=== PATIENT | male | born 1945 | race Caucasian/White ===

== ENCOUNTER 2019-01-11 14:05 | Emergency (ER) | payer OTHER ==
--- NOTE | 2019-01-11 15:27 | ER Document Report ---
ED Medical Screen (RME) - General Chief Complaint: Dizziness Stated Complaint: LIGHTHEADED, WEAKNESS Time Seen by Provider: 01/11/19 15:10 Notes: Patient is a 73-year-old male presents to the emergency department for generalized weakness and dizziness for the last 2 days. Patient states he presented to his primary care provider office for evaluation. States they did an EKG and told him that his heart was "too slow. EKG that is with patient records shows his heart rate was at 56. Patient's denying any chest pain, shortness of breath. States he was doing a lot of work outside the last couple of days. States he just feels "extra tired" states again I "do not feel like myself." Admits to gENERAL: Alert, interacts well. No acute distress. HEAD: Normocephalic, atraumatic. LUNGS: Clear to auscultation bilaterally, no wheezes, rales, or rhonchi. No respiratory distress. [place] CVA scale 0 I have greeted and performed a rapid initial assessment of this patient. A comprehensive ED assessment and evaluation of the patient, analysis of test results and completion of the medical decision making process will be conducted by additional ED providers. I have specifically instructed the patient or family members with the patient to immediately return to any nursing staff should anything change in the patient's condition or with their chief complaint. This medical record was dictated with voice recognizing software. There may be grammatical, syntax errors that are unintended. TRAVEL OUTSIDE OF THE [place] IN LAST 30 DAYS: No - Related Data Allergies/Adverse Reactions: No Known Allergies Allergy (Verified 01/11/19 14:15) Past Medical History - Social History Frequency of alcohol use: Occasional Drug Abuse: None Renal/ Medical History: Denies: Hx Peritoneal Dialysis Physical Exam - Vital signs Vitals: Temp Pulse Resp BP Pulse Ox 98.4 F 75 16 168/69 H 95 01/11/19 14:01/11/19 14:01/11/19 14:01/11/19 14:01/11/19 14:28 Course - Vital Signs Vital signs: Temp Pulse Resp BP Pulse Ox 98.4 F 75 16 168/69 H 95 01/11/19 14:28 01/11/19 14:28 01/11/19 14:28 01/11/19 14:28 01/11/19 14:28
--- NOTE | 2019-01-11 16:02 | RADIOLOGY REPORT (SQ) ---
EXAM DESCRIPTION: CT HEAD WITHOUT COMPLETED DATE/TIME: 01/11/2019 3:51 pm REASON FOR STUDY: weakness COMPARISON: None. TECHNIQUE: Axial images acquired through the brain without intravenous contrast. Images reviewed wi th bone, brain and subdural windows. Additional sagittal and coronal reconstructions were generated. Images stored on PACS. All CT scanners at this facility use dose modulation, iterative reconstruction, and/or weight based d osing when appropriate to reduce radiation dose to as low as reasonably achievable (ALARA). [facility]: Dose Right [facility]: CareDose [facility]: Dose Right [facility]: Teradose 4D [facility]: [employer] RADIATION DOSE: CT Rad equipment meets quality standard of care and radiation dose reduction techniq ues were employed. CTDIvol: 53.2 mGy. DLP: 1017 mGy-cm. mGy. LIMITATIONS: None. FINDINGS: VENTRICLES: Normal size and contour. CEREBRUM: No masses. No hemorrhage. No midline shift. No evidence for acute infarction. Normal gra y/white matter differentiation. No areas of low density in the white matter. CEREBELLUM: No masses. No hemorrhage. No alteration of density. No evidence for acute infarction. EXTRAAXIAL SPACES: No fluid collections. No masses. ORBITS AND GLOBE: No intra- or extraconal masses. Normal contour of globe without masses. CALVARIUM: No fracture. PARANASAL SINUSES: No fluid or mucosal thickening. SOFT TISSUES: No mass or hematoma. OTHER: No other significant finding. IMPRESSION: No acute intracranial pathology. EVIDENCE OF ACUTE STROKE: NO. COMMENT: Quality ID # [id number]: Final reports with documentation of one or more dose reduction techniques (e.g., Automated exposure control, adjustment of the mA and/or kV according to patient size, use of iterative reconstruction technique) TECHNICAL DOCUMENTATION: JOB ID: [id number] [employer]- All Rights Reserved Reading location - IP/workstation name: [email or web address]
--- NOTE | 2019-01-11 16:10 | RADIOLOGY REPORT (SQ) ---
EXAM DESCRIPTION: CHEST SINGLE VIEW COMPLETED DATE/TIME: 01/11/2019 3:49 pm REASON FOR STUDY: weakness COMPARISON: None. NUMBER OF VIEWS: One view. TECHNIQUE: Single frontal radiographic view of the chest acquired. LIMITATIONS: None. FINDINGS: LUNGS AND PLEURA: No consolidation, masses or pneumothorax. No significant pleural effusio n. MEDIASTINUM AND HILAR STRUCTURES: No masses. Contour normal. HEART AND VASCULAR STRUCTURES: Heart normal in size. Normal vasculature. Prior CABG. BONES: No acute findings. HARDWARE: CABG hardware. OTHER: No other significant finding. IMPRESSION: NO SIGNIFICANT RADIOGRAPHIC FINDING IN THE CHEST. PRIOR CABG. TECHNICAL DOCUMENTATION: JOB ID: [id number] [place]-72 2010 [employer]- All Rights Reserved Reading location - IP/workstation name: [email or web address]
[2019-01-11 16:21] LABS: ABSOLUTE BASOPHILS # (AUTO) 0.1 10^3/uL (0.0-0.2); ABSOLUTE EOSINOPHILS # (AUTO) 0.2 10^3/uL (0.0-0.6); ABSOLUTE LYMPHOCYTES (AUTO) 2.1 10^3/uL (0.5-4.7); ABSOLUTE MONOCYTES (AUTO) 0.6 10^3/uL (0.1-1.4); ABSOLUTE NEUT (AUTO) 5.8 10^3/uL (1.7-8.2); BASOPHILS % (AUTO) 0.9 % (0-2); EOSINOPHILS % (AUTO) 1.8 % (0-6); HEMATOCRIT 46.3 % (37.9-51.0); HEMOGLOBIN 15.9 g/dL (13.5-17.0); MEAN CORPUSCULAR HEMOGLOBIN 31.8 pg (27.0-33.4); MEAN CORPUSCULAR HGB CONC 34.2 g/dL (32.0-36.0); MEAN CORPUSCULAR VOLUME 93 fl (80-97); MONOCYTES % (AUTO) 6.7 % (3-13); PLATELET COUNT 211 10^3/uL (150-450); RED BLOOD COUNT 4.99 10^6/uL (4.35-5.55); RED CELL DISTRIBUTION WIDTH 12.7 % (11.5-14.0); SEGMENTED NEUTROPHILS % (AUTO) 66.6 % (42-78); TOTAL CELLS COUNTED % (AUTO) 100 %; WHITE BLOOD COUNT 8.8 10^3/uL (4.0-10.5)
[2019-01-11 16:24] LABS: APPEARANCE,URINE CLEAR; BILIRUBIN,URINE NEGATIVE (NEGATIVE); COLOR,URINE YELLOW; GLUCOSE, URINE NEGATIVE (NEGATIVE); KETONES,URINE NEGATIVE (NEGATIVE); LEUKOCYTE ESTERASE,URINE NEGATIVE (NEGATIVE); NITRITE,URINE NEGATIVE (NEGATIVE); PROTEIN,URINE NEGATIVE (NEGATIVE); URINE SPECIFIC GRAVITY 1.008; UROBILINOGEN,URINE NEGATIVE mg/dL (<2.0)
[2019-01-11 16:41] LABS: ALANINE AMINOTRANSFERASE 47 U/L (21-72); ALBUMIN 4.8 g/dL (3.5-5.0); ALKALINE PHOSPHATASE 134 U/L (38-126); ANION GAP 9 (5-19); ASPARTATE AMINO TRANSFERASE 51 U/L (17-59); BILIRUBIN,DIRECT 0.3 mg/dL (0.0-0.4); BILIRUBIN,TOTAL 0.5 mg/dL (0.2-1.3); BLOOD UREA NITROGEN 12 mg/dL (7-20); CALCIUM 10.3 mg/dL (8.4-10.2); CARBON DIOXIDE 27 mmol/L (22-30); CHLORIDE 105 mmol/L (98-107); CREATINE KINASE 113 U/L (55-170); GLUCOSE 104 mg/dL (75-110); POTASSIUM 5.6 mmol/L (3.6-5.0); SODIUM 140.9 mmol/L (137-145)
[2019-01-11 16:54] LABS: CREATINE KINASE MB 0.94 ng/mL (<4.55)
[2019-01-11 17:04] LABS: TROPONIN I 0.038 ng/mL
[2019-01-11] MEDS ORDERED: NORMAL SALINE 1000 ML 1,000 ML IV ONE (18:57)
--- NOTE | 2019-01-11 19:18 | ER Document Report ---
ED General - General Chief Complaint: Dizziness Stated Complaint: LIGHTHEADED, WEAKNESS Time Seen by Provider: 01/11/19 15:10 Primary Care Provider: PROSPER,FLAQUITA [Primary Care Provider] - Follow up as needed TRAVEL OUTSIDE OF THE [place] IN LAST 30 DAYS: No - HPI Notes: Patient is a 73-year-old male that presents to the emergency department for chief complaint of bradycardia. Patient states that he was being evaluated at the [facility] today for episodes of dizziness as well as left neck pain when they informed him he needed to go to the ER because his heart rate was 56. Patient states that yesterday while lifting a piece of drywall on an angle he had a sharp pain in the left side of his neck that felt like a spasm. It lasted for about an hour and then resolved with rest. He states that pain has not returned back. He also reports a few episodes of dizziness over the last 2 days as well. He states when he lies flat on his back he feels like the room is spinning. This lasts for 2 to 3 seconds at a time and then completely resolves. He states he has felt a fullness in his left ear and had an earwax impaction this week that he resolved with Debrox. Patient did have one episode of dizziness while lying flat for the CT scanner but states he has otherwise been asymptomatic. He denies any palpitations, chest pain, shortness of breath, diaphoresis, nausea/vomiting. He had a normal stress test 3 years ago. He has been compliant with all medications including his aspirin and Plavix. Past Medical History: Hypertension, CAD, hyperlipidemia Past Surgical History: CABG x3, coronary stent x3, mammary artery bypass Social History: Daily tobacco use. Denies drugs and alcohol. Family History: Reviewed and noncontributory for presenting illness Allergies: Reviewed, see documented allergy list. REVIEW OF SYSTEMS: CONSTITUTIONAL : No fever No chills No diaphoresis No recent illness EENT: No vision changes No congestion No sore throat CARDIOVASCULAR: No chest pain No palpitations RESPIRATORY: No shortness of breath No cough No difficulty breathing GASTROINTESTINAL: No abdominal pain No nausea No vomiting No diarrhea GENITOURINARY: No dysuria No hematuria No difficulty urinating MUSCULOSKELETAL: No back pain No leg pain No arm pain Left-sided neck pain SKIN: No rashes No lesions LYMPHATIC: No swollen, enlarged glands. NEUROLOGICAL: No lightheadedness No headache No weakness No paresthesias dizziness PSYCHIATRIC: No anxiety No depression PHYSICAL EXAMINATION: Vital signs reviewed, nursing noted reviewed. GENERAL: Well-appearing, well-nourished and in no acute distress. HEAD: Atraumatic, normocephalic. EYES: No nystagmus eyes appear normal, extraocular movements intact, sclera anicteric, conjunctiva are normal. ENT: nares patent, oropharynx clear without exudates. Moist mucous membranes. NECK: No carotid bruit, no midline spinal tenderness or paraspinal tenderness, normal range of motion, supple without lymphadenopathy LUNGS: Breath sounds clear to auscultation bilaterally and equal. No wheezes rales or rhonchi. HEART: Regular rate and rhythm without murmurs, +2/4 bilateral radial and DP pulses ABDOMEN: Soft, nontender, normoactive bowel sounds. No rebound, guarding, or ri gidity. No masses appreciated. EXTREMITIES: Nontender, good range of motion, no pitting or edema. NEUROLOGICAL: No focal neurological deficits. Moves all extremities spontaneously Motor and sensory grossly intact on exam. PSYCH: Normal mood, normal affect. SKIN: Warm, Dry, normal turgor, no rashes or lesions noted on exposed skin - Related Data Allergies/Adverse Reactions: No Known Allergies Allergy (Verified 01/11/19 14:15) Past Medical History - Social History Smoking Status: Current Some Day Smoker Frequency of alcohol use: Occasional Drug Abuse: None Family History: Reviewed & Not Pertinent Patient has suicidal ideation: No Patient has homicidal ideation: No Renal/ Medical History: Denies: Hx Peritoneal Dialysis Physical Exam - Vital signs Vitals: Temp Pulse Resp BP Pulse Ox 98.4 F 75 16 168/69 H 95 01/11/19 14:28 01/11/19 14:28 01/11/19 14:28 01/11/19 14:28 01/11/19 14:28 Course - Re-evaluation Re-evalutation: 01/11/19 19:18 Vitals reviewed. Nursing notes reviewed. Patient is not bradycardic in the emergency room. He does have PVCs with no other significant change from the EKGs he had performed at the [facility]. Patient's heart rate was 56 at the [facility] and was 55 and 2015. Patient reports being on blood pressure medicines that slow his heart rate down and I am not clinically concerned about his bradycardia at this point since his blood pressure is stable and he is mentating appropriately. His dizzy spells last for a few seconds at a time and are positional consistent with probable BPPV from his left ear discomfort. Patient's lab work does show hyperkalemia at 5.6. His troponin is also indeterminate at 0.038. Delta troponin will be drawn. Patient is currently refusing to be placed on phototypesetting equipment monitor. He is also refusing admission to the hospital for his hyperkalemia indeterminate troponin. I did recommend IV fluids to help with the hyperkalemia which she has also declined. Patient was given oral hydration in the ED. He is agreeing to wait on the second troponin. Patient had CT scan performed for his complaint of dizziness which shows no acute intracranial pathology. I am currently not suspicious for stroke as a cause of his dizziness since his symptoms resolved after a few seconds and are positional. Laboratory 01/11/19 01/11/19 01/11/19 16:09 16:09 16:09 WBC 8.8 RBC 4.99 Hgb 15.9 Hct 46.3 MCV 93 MCH 31.8 MCHC 34.2 RDW 12.7 Plt Count 211 Seg Neutrophils % 66.6 Lymphocytes % 24.0 Monocytes % 6.7 Eosinophils % 1.8 Basophils % 0.9 Absolute Neutrophils 5.8 Absolute Lymphocytes 2.1 Absolute Monocytes 0.6 Absolute Eosinophils 0.2 Absolute Basophils 0.1 Sodium 140.9 Potassium 5.6 H Chloride 105 Carbon Dioxide 27 Anion Gap 9 BUN 12 Creatinine 0.94 Est GFR ( Amer) > 60 Est GFR (Non-Af Amer) > 60 Glucose 104 Calcium 10.3 H Total Bilirubin 0.5 Direct Bilirubin 0.3 Neonat Total Bilirubin Not Reportable Neonat Direct Bilirubin Not Reportable Neonat Indirect Bili Not Reportable AST 51 ALT 47 Alkaline Phosphatase 134 H Creatine Kinase 113 CK-MB (CK-2) 0.94 Troponin I 0.038 Total Protein 8.0 Albumin 4.8 Urine Color Urine Appearance Urine pH Ur Specific [place] Urine Protein Urine Glucose (UA) Urine Ketones Urine Blood Urine Nitrite Urine Bilirubin Urine Urobilinogen Ur Leukocyte Esterase Urine WBC (Auto) Urine Mucus (Auto) Urine Ascorbic Acid 01/11/19 16:09 WBC RBC Hgb Hct MCV MCH MCHC RDW Plt Count Seg Neutrophils % Lymphocytes % Monocytes % Eosinophils % Basophils % Absolute Neutrophils Absolute Lymphocytes Absolute Monocytes Absolute Eosinophils Absolute Basophils Sodium Potassium Chloride Carbon Dioxide Anion Gap BUN Creatinine Est GFR ( Amer) Est GFR (Non-Af Amer) Glucose Calcium Total Bilirubin Direct Bilirubin Neonat Total Bilirubin Neonat Direct Bilirubin Neonat Indirect Bili AST ALT Alkaline Phosphatase Creatine Kinase CK-MB (CK-2) Troponin I Total Protein Albumin Urine Color YELLOW Urine Appearance CLEAR Urine pH 5.0 Ur Specific [place] 1.008 Urine Protein NEGATIVE Urine Glucose (UA) NEGATIVE Urine Ketones NEGATIVE Urine Blood NEGATIVE Urine Nitrite NEGATIVE Urine Bilirubin NEGATIVE Urine Urobilinogen NEGATIVE Ur Leukocyte Esterase NEGATIVE Urine WBC (Auto) 1 Urine Mucus (Auto) RARE Urine Ascorbic Acid NEGATIVE Chest X-Ray 01/11/19 15:23 IMPRESSION: NO SIGNIFICANT RADIOGRAPHIC FINDING IN THE CHEST. PRIOR CABG. Head CT 01/11/19 15:27 IMPRESSION: No acute intracranial pathology. EVIDENCE OF ACUTE STROKE: NO. 01/11/19 20:10 Patient second troponin is lower than the first. He was advised admission to the hospital for telemetry monitoring given his intermittent bradycardia, ectopy and hyperkalemia however patient has declined admission to the hospital. He states he will follow with the [facility] tomorrow for repeat potassium and to get another cardiac stress test scheduled since it has been 3 years. Patient has not had any chest pain or shortness of breath to suggest acute ACS. Patient un derstands his medical conditions and has capacity to make medical decisions. He will be discharged home at this time. - Vital Signs Vital signs: Temp Pulse Resp BP Pulse Ox 98.4 F 94 16 181/61 H 98 01/11/19 14:28 01/11/19 19:57 01/11/19 19:57 01/11/19 19:57 01/11/19 19:57 - Laboratory Result Diagrams: 01/11/19 16:09 01/11/19 16:09 Laboratory results interpreted by me: 01/11/19 16:09 Potassium 5.6 H Calcium 10.3 H Alkaline Phosphatase 134 H - EKG Interpretation by Me Additional EKG results interpreted by me: 01/11/19 19:16 Interpreted by myself 07/29/2002: Normal sinus rhythm, rate 71, frequent PVCs, no STEMI, no significant change from 1322 on 01/11/2019 performed at the [facility] or 07/03/2015 at the [facility] Discharge - Discharge Clinical Impression: Hyperkalemia, Bradycardia BPPV (benign paroxysmal positional vertigo) Qualifiers: Laterality: left Qualified Code(s): H81.12 - Benign paroxysmal vertigo, left ear Condition: Stable Disposition: HOME, SELF-CARE Instructions: Vertigo ([facility]) Additional Instructions: Please return to the emergency department if you have any worsening, or concern of your symptoms. Please return to the emergency department if you develop chest pain, difficulty breathing, severe abdominal pain, or ongoing vomiting. Please follow-up with your primary care physician in 1-2 days and any other recommended physicians. If prescribed, take all medications as directed. If you have any questions or concerns do not hesitate to return the emergency department for evaluation. You need to have your potassium level rechecked by your primary care doctor in the next 1 to 2 days. Increase the amount of water you are drinking daily which can lower your potassium levels. Talk to your primary care doctor about getting a repeat cardiac stress test in the next week Referrals: [facility] [Primary [facility] Provider] - Follow up tomorrow
[2019-01-11 19:58] VITALS: BP 181/61
--- NOTE | 2019-01-11 22:59 | EKG REPORT ---
SEVERITY:- ABNORMAL ECG - SINUS RHYTHM WITH APC VENTRICULAR BIGEMINY CONSIDER ANTEROSEPTAL INFARCT NONSPECIFIC T ABNORMALITIES, INFERIOR LEADS : Confirmed by: Sung Kilpatrick 11-Jan-2019 22:57:51
== END 2019-01-11 20:16 | disposition home or self-care (01) ==
LOC: ER 14:05
DX: H81.12 Benign paroxysmal vertigo, left ear (principal); E87.5 Hyperkalemia; R00.1 Bradycardia, unspecified
CPT/HCPCS: 36415; 70450; 71045; 80053; 81001; 82550; 82553; 84484; 85025; 93005; 93010; 99285

== ENCOUNTER 2019-07-04 12:04 | Emergency (ER) | payer OTHER, MEDICARE ==
[2019-07-04 12:25] LABS: ABSOLUTE EOSINOPHILS # (AUTO) 0.3 10^3/uL (0.0-0.6); ABSOLUTE LYMPHOCYTES (AUTO) 2.5 10^3/uL (0.5-4.7); ABSOLUTE NEUT (AUTO) 4.9 10^3/uL (1.7-8.2); BASOPHILS % (AUTO) 0.5 % (0-2); EOSINOPHILS % (AUTO) 3.2 % (0-6); HEMOGLOBIN 16.7 g/dL (13.5-17.0); LYMPHOCYTES % (AUTO) 28.8 % (13-45); MEAN CORPUSCULAR HEMOGLOBIN 32.3 pg (27.0-33.4); MEAN CORPUSCULAR HGB CONC 34.8 g/dL (32.0-36.0); MEAN CORPUSCULAR VOLUME 93 fl (80-97); MONOCYTES % (AUTO) 11.8 % (3-13); PLATELET COUNT 210 10^3/uL (150-450); RED BLOOD COUNT 5.16 10^6/uL (4.35-5.55); SEGMENTED NEUTROPHILS % (AUTO) 55.7 % (42-78); TOTAL CELLS COUNTED % (AUTO) 100 %; WHITE BLOOD COUNT 8.8 10^3/uL (4.0-10.5)
[2019-07-04 12:57] LABS: CREATINE KINASE 63 U/L (55-170)
[2019-07-04 13:10] LABS: PROTHROMBIN TIME 12.1 SEC (11.4-15.4)
--- NOTE | 2019-07-04 13:22 | RADIOLOGY REPORT (SQ) ---
EXAM DESCRIPTION: CT HEAD WITHOUT COMPLETED DATE/TIME: 07/04/2019 1:07 pm REASON FOR STUDY: acute altered mental status COMPARISON: 01/11/2019. TECHNIQUE: Axial images acquired through the brain without intravenous contrast. Images reviewed wi th bone, brain and subdural windows. Images stored on PACS. All CT scanners at this facility use dose modulation, iterative reconstruction, and/or weight based d osing when appropriate to reduce radiation dose to as low as reasonably achievable (ALARA). [facility]: Dose Right [facility]: CareDose [facility]: Dose Right [facility]: Teradose 4D [facility]: [employer] [place] RADIATION DOSE: CT Rad equipment meets quality standard of care and radiation dose reduction techniq ues were employed. CTDIvol: 53.2 mGy. DLP: 991 mGy-cm. mGy. LIMITATIONS: None. FINDINGS: VENTRICLES: Normal size and contour. CEREBRUM: No masses. No hemorrhage. No midline shift. No evidence for acute infarction. Normal gra y/white matter differentiation. No areas of low density in the white matter. CEREBELLUM: No masses. No hemorrhage. No alteration of density. No evidence for acute infarction. EXTRAAXIAL SPACES: No fluid collections. No masses. ORBITS AND GLOBE: No intra- or extraconal masses. Normal contour of globe without masses. CALVARIUM: No fracture. PARANASAL SINUSES: Mucosal thickening in the maxillary and ethmoid sinuses. Minimal mucosal thickeni ng frontal sinuses. SOFT TISSUES: No mass or hematoma. OTHER: No other significant finding. IMPRESSION: CHRONIC SINUSITIS. NORMAL BRAIN CT WITHOUT CONTRAST. EVIDENCE OF ACUTE STROKE: NO. COMMENT: Quality ID # [id number]: Final reports with documentation of one or more dose reduction techniques (e.g., Automated exposure control, adjustment of the mA and/or kV according to patient size, use of iterative reconstruction technique) TECHNICAL DOCUMENTATION: JOB ID: [id number] [place]-[id number] 2010 [employer]- All Rights Reserved Reading location - IP/workstation name: [email or web address]
[2019-07-04 13:29] LABS: ALKALINE PHOSPHATASE 120 U/L (38-126); ANION GAP 14 (5-19); ASPARTATE AMINO TRANSFERASE 53 U/L (17-59); BILIRUBIN,DIRECT 0.3 mg/dL (0.0-0.4); BILIRUBIN,TOTAL 0.7 mg/dL (0.2-1.3); BLOOD UREA NITROGEN 13 mg/dL (7-20); CALCIUM 10.6 mg/dL (8.4-10.2); CARBON DIOXIDE 26 mmol/L (22-30); CHLORIDE 101 mmol/L (98-107); GLUCOSE 104 mg/dL (75-110); POTASSIUM 4.1 mmol/L (3.6-5.0); TOTAL PROTEIN 8.3 g/dL (6.3-8.2)
--- NOTE | 2019-07-04 13:50 | ER Document Report ---
Entered by ELENI RESENDIZ SCRIBE 07/04/19 2270 Acting as scribe for:ITZEL FORMAN MD ED Neuro Symptoms/Deficit - General Chief Complaint: General Weakness Stated Complaint: WEAKNESS Time Seen by Provider: 07/04/19 12:20 Primary Care Provider: FLAQUITA CHENG [Primary Care Provider] - Follow up as needed Mode of Arrival: Medic Information source: Patient Notes: This 74-year-old male patient presents to the emergency department today with complaints of stroke-like symptoms that have now completely resolved. Patient states that he was sitting down at his kitchen table around 11am this morning to "do his bills" like he normally does and he experienced "the weirdest feeling ever". Patient states he "just had no idea how to do what he wanted to do". Patient states "just nothing was working right, I do not know how to explain it". Patient does note that he had absolutely no weakness, just difficulty getting his body to do what he wanted it to. He then went to stretch out in his recliner due to not feeling well, and found that he was unable to work the recliner. This concerned him enough that he asked his to call 911. He was afraid he may be having a stroke. Patient states that this intense state of confusion lasted for approximately 2 to 3 minutes. Patient states he still had "a little confusion" for a little while longer but by the time EMS had arrived on scene the patient was completely asymptomatic and remains asymptomatic here. Patient reports his blood pressure was quite elevated when EMS first arrived. Patient states he was told in the past that he had a 70% blockage in his right coronary artery and he is not sure if this could be related to his symptoms today. Patient is on clopidogrel and baby aspirin daily. Pertinent PMHx/PSHx: Coronary artery disease, CABG X3, coronary artery stents X3, on clopidogrel and baby aspirin. Patient reports that his left carotid artery showed a 40% stenosis, his right carotid showed a 70% stenosis. He is supposed to be getting referred to a vascular surgeon sometime this week for further evaluation of his right carotid stenosis. PCP: FLAQUITA The patient is not a TPA candidate. At this time he does not appear to have any cognitive or motor deficits, and he states he feels like his symptoms have all resolved. TRAVEL OUTSIDE OF THE [place] IN LAST 30 DAYS: No - Related Data Allergies/Adverse Reactions: No Known Allergies Allergy (Verified 01/11/19 14:15) Past Medical History - General Information source: Patient, [facility] Records - Social History Smoking Status: Former Smoker Cigarette use (# per day): No Frequency of alcohol use: None Drug Abuse: None Lives with: Spouse/Significant other Family History: Reviewed & Not Pertinent - Past Medical History Cardiac Medical History: Reports: Hx Atrial Fibrillation, Hx Coronary Artery Disease, Hx Hypercholesterolemia, Hx Hypertension Surgical Hx: Negative Review of Systems - Review of Systems Constitutional: No symptoms reported EENT: No symptoms reported Cardiovascular: No symptoms reported Respiratory: No symptoms reported Gastrointestinal: No symptoms reported Genitourinary: No symptoms reported Male Genitourinary: No symptoms reported Musculoskeletal: No symptoms reported Skin: No symptoms reported Hematologic/Lymphatic: No symptoms reported Neurological/Psychological: See HPI, Confusion. denies: Weakness -: Yes All other systems reviewed and negative Physical Exam - Vital signs Vitals: Resp Pulse Ox 23 H 98 07/04/19 12:18 07/04/19 12:18 - Notes Notes: Physical Exam: General: Alert, appears well. HEENT: Normocephalic. Atraumatic. PERRL. Extraocular movements intact. Oropharynx clear. Carotid bruit on the right. Neck: Supple. Non-tender. Respiratory: No respiratory distress. Clear and equal breath sounds bilaterally. Cardiovascular: Regular rate and rhythm. Abdominal: Normal Inspection. Non-tender. No distension. Normal Bowel Sounds. Back: No gross abnormalities. Extremities: Moves all four extremities. Upper extremities: Normal inspection. Normal ROM. Lower extremities: Normal inspection. No edema. Normal ROM. Neurological: Normal cognition. AAOx4. Normal speech. Psychological: Normal affect. Normal Mood. Skin: Warm. Dry. Normal color. Course - Re-evaluation Re-evalutation: 07/04/19 16:57 I did discuss the case with Rodney Mortensen NP with the hospitalist service. Since the patient is presently on Plavix and aspirin, and his symptoms have completely resolved, there is really nothing to benefit the patient from hospitalization standpoint and no medication changes that would likely provide a benefit. This was discussed with the patient, he understands and is in agreement with this approach. He will take a copy of the MRI report with him to see his primary care provider tomorrow. - Vital Signs Vital signs: Temp Pulse Resp BP Pulse Ox 97.9 F 69 23 H 145/64 H 95 07/04/19 12:46 07/04/19 12:45 07/04/19 16:31 07/04/19 16:31 07/04/19 16:31 - Laboratory Result Diagrams: 07/04/19 11:30 07/04/19 11:30 Laboratory results interpreted by me: 07/04/19 11:30 Calcium 10.6 H Total Protein 8.3 H - Diagnostic Test Radiology reviewed: Image reviewed, Reports reviewed - CT scan does not show any acute process. MRI of the head shows mild areas of abnormal left parietal and occipital lobes suspected recent infarct. 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 This is caused when an artery to the brain has been temporarily blocked. It can result in visual changes, difficulty with speech, and weakness or numbness -- usually limited to one side of the body. TIA symptoms usually resolve within an hour, but a TIA is serious, as it may be a warning sign of an impending stroke. To prevent further episodes, you may be placed on medication to reduce the possibility that your platelets will aggregate and form blood clots in the arteries that supply the brain. Usually, this includes aspirin and sometimes other platelet inhibitors. Further evaluation is often necessary to make an exact diagnosis as to where these blood clots are originating, and if anything else needs to be done to correct the problem. Call the physician or go to the emergency room if episodes occur with increasing frequency. If symptoms occur that don't go away within a few minutes, call 911. Stroke Stroke occurs when a blood vessel to the brain is blocked. Symptoms of stroke can include visual changes, confusion, difficulty with speech, and weakness or numbness of the face, arm, or leg. Some strokes are extremely serious, while others cause hardly any symptoms at all. Not all strokes require hospitalization. The symptoms of stroke usually improve with time. Physical therapy and exercise help you recover. To avoid further episodes, you may be placed on medication to slow blood clotting. This may include aspirin or sometimes other "blood thinning" medicine. Further evaluation is often necessary to see where the blood clots are originating. Call 911 or go to the nearest emergency room at once if you have any stroke symptoms. You should return if there is increasing confusion or inappropriate sleepiness, spreading areas of weakness, increasing headache, decreasing vision, or vomiting. Continue your regular medications. Follow-up with your primary care provider tomorrow for further evaluation. RETURN TO THE EMERGENCY ROOM IF ANY NEW OR WORSENING SYMPTOMS. Referrals: [facility] [Primary [facility] Provider] - Follow up tomorrow Scribe Attestation: 07/04/19 13:59 I personally performed the services described in the documentation, reviewed and edited the documentation which was dictated to the scribe in my presence, and it accurately records my words and actions. I personally performed the services described in the documentation, reviewed and edited the documentation which was dictated to the scribe in my presence, and it accurately records my words and actions.
--- NOTE | 2019-07-04 15:09 | RADIOLOGY REPORT (SQ) ---
EXAM DESCRIPTION: MRI HEAD WITHOUT COMPLETED DATE/TIME: 07/04/2019 2:53 pm REASON FOR STUDY: TIA COMPARISON: CT from earlier. TECHNIQUE: Multiplanar imaging includes non-contrasted T1, T2, FLAIR, and diffusion with ADC map seq uences. Images stored on PACS. LIMITATIONS: None. FINDINGS: ANATOMY: No anomalies. Normal vascular flow voids. Pituitary fossa normal. CSF SPACES: Normal in size and contour. No hemorrhage. CEREBRUM: Sulci and gyri normal in size and contour. Normal white matter signal on FLAIR imaging. No evidence of hemorrhage, mass, or extraaxial fluid collection. POSTERIOR FOSSA: No signal alteration. No hemorrhage. No edema, masses or mass effect. Internal yesi tory canals, cerebello-pontine angles, mastoids normal. DIFFUSION IMAGING: Minimal focal area of restricted diffusion in the left occipital lobe. Mild bandl manuela restricted diffusion subcortical left parietal also noted. These areas may represent recent infa rct. ORBITS: No masses. Globes normal. PARANASAL SINUSES: No fluid levels. Mucosa normal. OTHER: No other significant finding. IMPRESSION: 1. Mild areas of abnormal left parietal and occipital lobe, suspected recent infarct. 2. No hemorrhage or mass or shift. EVIDENCE OF ACUTE STROKE: NO. TECHNICAL DOCUMENTATION: JOB ID: [id number] [employer]- All Rights Reserved Reading location - IP/workstation name: [email or web address]
--- NOTE | 2019-07-04 15:47 | EKG REPORT ---
SEVERITY:- ABNORMAL ECG - SINUS BRADYCARDIA MULTIPLE ATRIAL PREMATURE COMPLEXES INCOMPLETE LEFT BUNDLE BRANCH BLOCK ANTERIOR Q WAVES, POSSIBLY DUE TO ILBBB POSSIBLE OLD INFERIOR HI : Confirmed by: Gagan Martinez MD 04-Jul-2019 15:46:58
[2019-07-04 17:05] VITALS: BP 167/63
== END 2019-07-04 17:13 | disposition home or self-care (01) ==
LOC: ER 12:04
DX: I63.433 Cerebral infarction due to embolism of bilateral posterior cerebral arteries (principal); R53.1 Weakness; R41.0 Disorientation, unspecified; I25.10 Atherosclerotic heart disease of native coronary artery without angina pectoris; Z95.5 Presence of coronary angioplasty implant and graft; Z79.82 Long term (current) use of aspirin; Z87.891 Personal history of nicotine dependence
CPT/HCPCS: 36415; 70450; 70551; 80053; 82550; 84484; 85025; 85610; 93005; 93010; 99291